=== PATIENT | female | born 1995 | race Caucasian/White ===

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

== ENCOUNTER 2017-04-16 18:42 | Emergency (ER) | payer SELFPAY ==
[~2017-04-16] VITALS: Ht 165.1 cm; Wt 80.0 kg
[2017-04-16 18:45] VITALS: BP 117/76; PULSE 82; RESP 16; TEMP 98.4; O2SAT 97
[2017-04-16] MEDS ORDERED: LIDOCAINE HCL 1% 50 ML VIAL INFIL ONE (19:00)
[2017-04-16] MEDS ORDERED: TETANUS/DIPHTHERIA TOXOID ADULT 0.5 ML VIAL IM ONE (19:00)
[2017-04-16] MEDS ORDERED: ACETAMINOPHEN/HYDROcodone 325 MG/5 MG TAB PO ONE (19:15)
[2017-04-16] MEDS ORDERED: BACT800T5 PO (19:20)
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
== END 2017-04-16 19:44 | disposition home or self-care (01) ==
LOC: PHEFT 18:42
DX: S81.811A Laceration without foreign body, right lower leg, initial encounter (principal); W26.0XXA Contact with knife, initial encounter; Y93.89 Activity, other specified; Z23 Encounter for immunization
CPT/HCPCS: 12001; 90471; 90714; 99283; E0113

== ENCOUNTER 2017-11-17 23:37 | Emergency (ER) | payer MEDICAID ==
[~2017-11-17] VITALS: Ht 165.1 cm; Wt 75.0 kg
[~2017-11-17 23:37] MED LIST: BACT800T5 PO
[2017-11-17 23:57] VITALS: BP 137/71; PULSE 79; RESP 18; TEMP 99.3; O2SAT 100
[2017-11-18] MEDS ORDERED: SODIUM CHLORIDE 0.9% FLUSH 10 ML FLUSH IVF PRN (01:00)
[2017-11-18] MEDS ORDERED: MORPHINE SULFATE 4 MG/ML INJ IV PUSH ONE (01:00)
[2017-11-18] MEDS ORDERED: ASPIRIN 325 MG TAB PO ONE (01:00)
[2017-11-18 01:03] VITALS: O2SAT 98
--- NOTE | 2017-11-18 01:15 | RADRPT ---
EXAM DATE/TIME: 11/18/2017 01:02 [facility] COMPARISON: No previous studies available for comparison. INDICATIONS : Chest pain MEDICAL HISTORY : None. SURGICAL HISTORY : Bilateral eye surgery. ENCOUNTER: Initial ACUITY: 1 day PAIN SCORE: 9/10 LOCATION: Bilateral chest FINDINGS: A single view of the chest demonstrates the lungs to be symmetrically aerated without evidence of mas s, infiltrate or effusion. The cardiomediastinal contours are unremarkable. Osseous structures are intact. CONCLUSION: 1. No acute cardiopulmonary disease. Eh Sweeney MD on November 18, 2017 at 1:13 Board Certified Radiologist. This report was verified electronically.
[2017-11-18 01:41] LABS: AUTOMATED NEUTROPHIL # 4.2 TH/MM3 (1.8-7.7); BASOPHIL # 0.1 TH/MM3 (0-0.2); BASOPHIL % 1.1 % (0.0-2.0); EOSINOPHIL # 0.2 TH/MM3 (0-0.4); EOSINOPHIL % 2.1 % (0.0-4.0); HEMATOCRIT 39.1 % (35.0-46.0); HEMOGLOBIN 13.2 GM/DL (11.6-15.3); LYMPH % 28.5 % (9.0-44.0); LYMPHOCYTE # 2.1 TH/MM3 (1.0-4.8); MEAN CELL VOLUME 80.1 FL (80.0-100.0); MEAN CORPUSCULAR HEMOGLOBIN 27.1 PG (27.0-34.0); MEAN CORPUSCULAR HGB CONC 33.8 % (32.0-36.0); MEAN PLATELET VOLUME 6.8 FL (7.0-11.0); MONO % 10.9 % (0.0-8.0); MONOCYTE # 0.8 TH/MM3 (0-0.9); NEUT % 57.4 % (16.0-70.0); PLATELET COUNT 308 TH/MM3 (150-450); RED BLOOD COUNT 4.89 MIL/MM3 (4.00-5.30); RED CELL DISTRIBUTION WIDTH 13.6 % (11.6-17.2); WHITE BLOOD COUNT 7.4 TH/MM3 (4.0-11.0)
[2017-11-18] MEDS ORDERED: IOHEXOL 350 MG/ML 10 ML VIAL (for RAD DIAG) IVCONTRAST ONE (01:47)
[2017-11-18 01:54] LABS: BICARBONATE 27.5 MEQ/L (21.0-32.0); BLOOD UREA NITROGEN 13 MG/DL (7-18); CALCIUM 8.5 MG/DL (8.5-10.1); CHLORIDE 108 MEQ/L (98-107); CREATININE 0.83 MG/DL (0.50-1.00); GLOMERULAR FILTRATION RATE 88 ML/MIN (>89); GLUCOSE,RANDOM 75 MG/DL (74-106); MAGNESIUM 1.8 MG/DL (1.5-2.5); SODIUM (NA) 141 MEQ/L (136-145)
[2017-11-18 01:57] LABS: PROTHROMBIN TIME - PATIENT 10.5 SEC (9.8-11.6); TROPONIN I LESS THAN 0.02 NG/ML (0.02-0.05)
--- NOTE | 2017-11-18 02:07 | RADRPT ---
EXAM DATE/TIME: 11/18/2017 01:32 [facility] COMPARISON: No previous studies available for comparison. INDICATIONS : Chest pain; rule out pulmonary embolus. IV CONTRAST: 65 cc Omnipaque 350 (iohexol) IV RADIATION DOSE: 10.16 CTDIvol (mGy) MEDICAL HISTORY : None SURGICAL HISTORY : None. ENCOUNTER: Initial ACUITY: 1 day PAIN SCALE: 5/10 LOCATION: chest TECHNIQUE: Volumetric scanning of the chest was performed using a pulmonary embolism protocol MIP images were re constructed. Using automated exposure control and adjustment of the mA and/or kV according to patien t size, radiation dose was kept as low as reasonably achievable to obtain optimal diagnostic quality images. DICOM format image data is available electronically for review and comparison. Follow-up recommendations for detected pulmonary nodules are based at a minimum on nodule size and pa tient risk factors according to Fleischner Society Guidelines. FINDINGS: PULMONARY ARTERIES: No filling defects are seen in the pulmonary arteries through the segmental level. LUNGS: There is no consolidation or pneumothorax . No concerning pulmonary nodule is visualized. PLEURAE: There is no pleural thickening or pleural effusion. MEDIASTINUM: There is good visualization of the great vessels of the middle mediastinum. No evidence of mediastin al or hilar adenopathy/mass. MUSCULOSKELETAL: Within normal limits for patient age. MISCELLANEOUS: The visualized upper abdominal organs demonstrate no acute abnormality. CONCLUSION: 1. No evidence of pulmonary embolism. Eh Sweeney MD on November 18, 2017 at 1:56 Board Certified Radiologist. This report was verified electronically.
[2017-11-18] MEDS ORDERED: IBUP-232 PO (02:35)
--- NOTE | 2017-11-18 02:35 | PD ---
HPI Chief Complaint: Cardiac Complaint Time Seen by Provider: 00:53 Travel History International Travel<30 days: No Contact w/Intl Traveler<30days: No Traveled to known affect area: No History of Present Illness HPI 22-year-old female complains of severe chest pain for one half hours. She reports that started while she was folding clothes. Intermittent throughout the course of the day has been much less severe pain. She denies fever. She reports an occasional cough. Shortness of breath accompanying the chest pain. She reports a pleuritic component and an exertional component. No history of diabetes hypertension hyperlipidemia or family history coronary artery disease. Patient does not smoke. She reports the quality of the pain to be stabbing. [facility] Past Medical History Medical History: Denies Significant Hx Diminished Hearing: No ?: Not LMP: 11/14/17 Past Surgical History Surgical History: No Previous Surgery Eye Surgery: Yes Social History Alcohol Use: No Tobacco Use: No Substance Use: Yes (MARIJUANA ) Allergies-Medications (Allergen,Severity, Reaction): Coded Allergies: No Known Allergies (Unverified Allergy, Unknown, 11/18/17) Reported Meds & Prescriptions Reported Meds & Active Scripts Active Ibuprofen 600 Mg Tab 600 Mg PO Q8HR PRN Review of Systems Except as stated in HPI: all other systems reviewed are Neg General / Constitutional: No: Chills Physical Exam Narrative GENERAL: 22-year-old female pleasant well-nourished well-developed no acute distress Vital Signs Date Time Temp Pulse Resp B/P (MAP) Pulse Ox O2 Delivery O2 Flow Rate FiO2 11/18/17 01:03 98 Room Air 11/18/17 01:03 98 Room Air 11/17/17 23:57 99.3 79 18 137/71 (93) 100 SKIN: Warm and dry. HEAD: Atraumatic. Normocephalic. EYES: Pupils equal and round. No scleral icterus. No injection or drainage. ENT: No nasal bleeding or discharge. Mucous membranes pink and moist. NECK: Trachea midline. No JVD. CARDIOVASCULAR: Regular rate and rhythm. RESPIRATORY: No accessory muscle use. Clear to auscultation. Breath sounds equal bilaterally. GASTROINTESTINAL: Abdomen soft, non-tender, nondistended. Hepatic and splenic margins not palpable. MUSCULOSKELETAL: Extremities without clubbing, cyanosis, or edema. No obvious deformities. NEUROLOGICAL: Awake and alert. No obvious cranial nerve deficits. Motor grossly within normal limits. Five out of 5 muscle strength in the arms and legs. Normal speech. PSYCHIATRIC: Appropriate mood and affect; insight and judgment normal. Data Data Last Documented VS Vital Signs Date Time Temp Pulse Resp B/P (MAP) Pulse Ox O2 Delivery O2 Flow Rate FiO2 11/18/17 01:03 98 Room Air 11/17/17 23:57 99.3 79 18 137/71 (93) Orders Orders Electrocardiogram (11/18/17 00:57) Basic Metabolic Panel (Bmp) (11/18/17 00:57) Ckmb (Isoenzyme) Profile (11/18/17 00:57) Complete Blood Count With Diff (11/18/17 00:57) Magnesium (Mg) (11/18/17 00:57) Prothrombin Time / Inr (Pt) (11/18/17 00:57) Act Partial Throm Time (Ptt) (11/18/17 00:57) Troponin I (11/18/17 00:57) Chest, Single Ap (11/18/17 00:57) Ecg Monitoring (11/18/17 00:57) Iv Access Insert/Monitor (11/18/17 00:57) Oximetry (11/18/17 00:57) Oxygen Administration (11/18/17 00:57) Aspirin (Aspirin) (11/18/17 01:00) Morphine Inj (Morphine Inj) (11/18/17 01:00) Sodium Chloride 0.9% Flush (Ns Flush) (11/18/17 01:00) Ct Pulmonary Angiogram (11/18/17 00:57) Ed Urine Pregnancytest Poc (11/18/17 00:57) Iohexol 350 Inj (Omnipaque 350 Inj) (11/18/17 01:47) Ed Discharge Order (11/18/17 02:33) Labs Laboratory Tests Test 11/18/17 01:25 White Blood Count 7.4 TH/MM3 Red Blood Count 4.89 MIL/MM3 Hemoglobin 13.2 GM/DL Hematocrit 39.1 % Mean Corpuscular Volume 80.1 FL Mean Corpuscular Hemoglobin 27.1 PG Mean Corpuscular Hemoglobin Concent 33.8 % Red Cell Distribution Width 13.6 % Platelet Count 308 TH/MM3 Mean Platelet Volume 6.8 FL Neutrophils (%) (Auto) 57.4 % Lymphocytes (%) (Auto) 28.5 % Monocytes (%) (Auto) 10.9 % Eosinophils (%) (Auto) 2.1 % Basophils (%) (Auto) 1.1 % Neutrophils # (Auto) 4.2 TH/MM3 Lymphocytes # (Auto) 2.1 TH/MM3 Monocytes # (Auto) 0.8 TH/MM3 Eosinophils # (Auto) 0.2 TH/MM3 Basophils # (Auto) 0.1 TH/MM3 CBC Comment DIFF FINAL Differential Comment Prothrombin Time 10.5 SEC Prothromb Time International Ratio 1.0 RATIO Activated Partial Thromboplast Time 26.1 SEC Blood Urea Nitrogen 13 MG/DL Creatinine 0.83 MG/DL Random Glucose 75 MG/DL Calcium Level 8.5 MG/DL Magnesium Level 1.8 MG/DL Sodium Level 141 MEQ/L Potassium Level 3.5 MEQ/L Chloride Level 108 MEQ/L Carbon Dioxide Level 27.5 MEQ/L Anion Gap 6 MEQ/L Estimat Glomerular Filtration Rate 88 ML/MIN Total Creatine Kinase 78 U/L Troponin I LESS THAN 0.02 NG/ML MDM Medical Decision Making Medical Screen Exam Complete: Yes Emergency Medical Condition: Yes Differential Diagnosis NSTEMI, unstable angina, coronary vasospasm, PE, PTX, aortic dissection, pericarditis, myocarditis, endocarditis, PNA, esophageal disease, aneurysm, musculoskeletal etiologies, anxiety, cocaine/sympathomimetic abuse Narrative Course CBC & BMP Diagram 11/18/17 01:25 Calcium Level 8.5, Magnesium Level 1.8 Tn < 0.02 EKG shows sinus rhythm with a rate of 63 no ischemic injury pattern Last Impressions Chest X-Ray 11/18/1756 Signed Impressions: Service Date/Time: Saturday, November 18, 2017 01:02 - CONCLUSION: 1. No acute cardiopulmonary disease. Eh Sweeney MD CT Angiography 11/18/1756 Signed Impressions: Service Date/Time: Saturday, November 18, 2017 01:32 - CONCLUSION: 1. No evidence of pulmonary embolism. Eh Sweeney MD The patient is resting comfortably and feels better, is alert and in no distress. The patients results and examination findings were discussed. The repeat examination is unremarkable and benign. The history, exam, diagnostic testing, and current condition do not suggest any significant pathology to warrant further testing, continued ED treatment, admission, or surgical evaluation at this point. The vital signs have been stable. The patient does not have uncontrollable pain, intractable vomiting, or other significant symptoms. The patient's condition is stable and appropriate for discharge. The patient will pursue further outpatient evaluation with a primary care physician or other designated or consulting physician as indicated in the discharge instructions. The patient expressed understanding and was agreeable with this plan. Diagnosis Primary Impression: Pleurisy Referrals: Eh Betts MD 2 days Med/Other Pt SpecificInfo: Prescription(s) given Scripts Ibuprofen (Ibuprofen) 600 Mg Tab 600 MG PO Q8HR Y for PAIN, #20 TAB 0 Refills Prov: Noah Bejarano MD 11/18/17 Disposition: 01 DISCHARGE HOME Condition: Stable Noah Bejarano MD Nov 18, 2017 02:35
--- NOTE | 2017-11-18 16:29 | EKG ---
Date Performed: 11/18/2017 Time Performed: 01:23:29 PTAGE: 22 years EKG: Sinus rhythm WITH SINUS ARRHYTHMIA NORMAL ECG NO PREVIOUS TRACING DOCTOR: Debra Lira Interpretating Date/Time 11/18/2017 16:27:34
== END 2017-11-18 02:52 | disposition home or self-care (01) ==
LOC: NEPC 23:37
DX: R09.1 Pleurisy (principal); I49.8 Other specified cardiac arrhythmias
CPT/HCPCS: 71045; 71275; 80048; 82550; 83735; 84484; 84703; 85025; 85610; 85730; 93005; 96374; 99285; J2270; Q9967